=== PATIENT | female | born 1965 | race Caucasian/White ===

== ENCOUNTER 2024-01-23 08:23 | Emergency (ER) | payer BC, SELFPAY ==
[2024-01-23 08:35] VITALS: BP 130/68
[2024-01-23 09:28] VITALS: BMI 26.2
[2024-01-23 09:29] VITALS: BP 129/80
--- NOTE | 2024-01-23 09:44 | ED.GENMED ---
History of Present Illness
General
Chief Complaint: Abdominal Pain
Source: patient
Exam Limitations: none
Time Seen by Provider: 01/23/24 09:07
Nursing documentation reviewed up to this point in time: agreed with
History of Present Illness
History of Present Illness:
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 Denies significant
urinary symptoms change in bowel movements nausea vomiting fevers.
Past History
Past History
ED Past Medical History: Arrthythmia and GERD
ED Past Surgical History: None
Social History
Tobacco: Non-smoker
Alcohol: Occasional
Personal:
Living: with family
Review of Systems
Review of Systems
Allergies reviewed?: Yes
All Other Systems: ROS reviewed and negative except as documented in HPI and ROS
Phy Exam
Physical Exam
Physical Exam:
GENERAL: Alert , in no apparent distress
EYE: pupils equal and reactive
NECK: Supple, no significant adenopathy.
ENT: o/p clr, mmm.
CARDIAC: Regular rate and rhythm .
LUNGS: Clear breath sounds bilaterally, no acute respiratory distress, no wheezes/rales/rhonchi
ABDOMEN: Soft, without focal tenderness, no r/g, no cvat
NEUROLOGICAL: Alert and oriented, no focal neuro deficits
SKIN: Warm and dry, skin intact.
MUSCULOSKELETAL: No edema, well perfused.
PSYCH: Normal and appropriate interaction.
Course
Orders/Labs/Results
Orders:
Orders
01/23/24 09:33
Complete Blood Count/With Diff Urgent
Comprehensive Metabolic Panel Urgent
Lipase Urgent
Urinalysis Reflex To Culture Urgent
Date Specimen was Collected: 01/23/24
Time Specimen was Collected: 09:27
01/23/24 09:33
01/23/24 09:33
Vital Signs
Initial and Last Documented VS:
Initial Vital Signs
Temp Pulse Resp BP Pulse Ox
99.1 F 68 18 130/68 100
01/23/24 08:35 01/23/24 08:35 01/23/24 08:35 01/23/24 08:35 01/23/24 08:35
Last Documented Vital Signs
Temp Pulse Resp BP Pulse Ox
99.1 F 68 18 127/68 100
01/23/24 08:35 01/23/24 08:35 01/23/24 08:35 01/23/24 10:00 01/23/24 08:35
MDM/Problems Addressed
MDM/Problems Addressed:
58-year-old female presenting to the emergency department today with concerns of lower abdominal pain made worse with movement and hip flexion over the past few days no specific inciting event. No additional GI or urinary symptoms. No vaginal
bleeding or discharge. No reproducible pain on exam other than when lifting her right leg. Seems to be most likely muscular. Labs unremarkable no progression of symptoms while here. With symptoms of 4 days no white count making surgical process
or appendicitis very unlikely. Also no reproducible pain to palpation. Stable for discharge return precautions given.
*Critical Care Note
Total Time (30-74mins, 75-104mins- exclusive of procedures): Not Applicable
ED Attending Note
-
Portions of this chart may have been created with voice recognition software.� Occasional wrong word or��sound alike� substitutions may have occurred due to the inherent limitations of voice recognition software.
Discharge Plan
Departure
Patient Disposition: Home (Routine Discharge)
Date of Disposition: 01/23/24
Time of Disposition: 10:25
Patient with high blood pressure during this ER visit?: No
Condition: Good
Covid-19: Not Applicable
Discharge Problem:
Lower abdominal pain
Instructions: Abdominal Pain
Prescriptions:
No Action
rivaroxaban [Xarelto] 20 MG tablet
20 mg PO QPM Qty: 30 0RF
Referrals:
Marcia Gaspar CRNP [Family Provider] -
Activity Restrictions/Additional Instructions:
You came to the emergency department today with concerns of lower abdominal pain. Here you to reassuring assessment with normal labs and urinalysis. Please immediately return to the emergency department for any worsening or progressive symptoms.
Interventions
Interventions:
*Risk Screen - Suicide Last Done: 01/23/24 09:28
*General Assessment Last Done: 01/23/24 09:28
*Neglect/Abuse Screening Last Done: 01/23/24 09:28
ED- Fall Risk Assessment Last Done: 01/23/24 09:41
*ED COVID-19 Vaccine History Last Done: 01/23/24 09:28
GZ-Kiyolc-Thrutjjsay Assessment Last Done: 01/23/24 09:28
Discharge Date and Time
Print Language: INDONESIAN
[2024-01-23 09:48] LABS: Urine Albumin Negative (Neg - Trace); Urine Bilirubin Negative (Negative); Urine Character Clear (Clear); Urine Color Yellow; Urine Glucose Negative (Negative); Urine Ketone Negative (Negative); Urine Leukocyte Negative (Negative); Urine Nitrite Negative (Negative); Urine Occult Blood Negative (Negative); Urine Specific Gravity 1.005 (<1.030); Urine Urobilinogen Negative (Neg - 1+)
[2024-01-23 09:52] LABS: % Basophils 0.6 % (0-2); % Eosinophils 0.6 % (0-6); % Immature Granulocytes 0.2 % (0-0.5); % Lymphocytes 23.8 % (20.5-51.1); % Monocytes 5.1 % (1.7-9.3); % Neutrophils 69.7 % (42.2-75.2); Absolute Basophils 0.1 10^3/uL (0-0.2); Absolute Eosinophils 0.1 10^3/uL (0-0.7); Absolute Lymphocytes 2.1 10^3/uL (1.2-3.4); Absolute Monocytes 0.4 10^3/uL (0.1-0.6); Hematocrit 40.7 % (37.0-47.0); Hemoglobin 13.7 g/dL (12.0-16.0); Mean Corp Hgb Conc. 33.7 g/dL (33.0-37.0); Mean Corpuscular Hgb 30.8 pg (27.0-31.0); Mean Corpuscular Volume 91.5 fL (81.0-99.0); Mean Platelet Volume 9.8 fL (7.4-10.4); Nucleated Red Blood Cells % 0 %; Platelet Count 298 10^3/uL (130-400); Red Blood Cell Count 4.45 10^6/uL (4.20-5.40); Red Cell Dist. Width 12.5 % (11.5-14.5); White Blood Cell Count 8.7 10^3/uL (4.8-10.8)
[2024-01-23 10:00] VITALS: BP 127/68
[2024-01-23 10:08] LABS: ALT (SGPT) 22 U/L (0-35); AST (SGOT) 24 U/L (14-36); Albumin 4.6 g/dl (3.5-5.0); Alkaline Phosphatase 78 U/L (38-126); Blood Urea Nitrogen 15 mg/dl (7-17); Calcium 9.7 mg/dl (8.4-10.2); Carbon Dioxide 30 mmol/L (22-30); Chloride 104 mmol/L (98-107); Estimated Creatinine Clearance 54 ml/min; Glucose 91 mg/dl (70-99); Lipase 92 U/L (23-300); Potassium 4.5 mmol/L (3.5-5.1); Sodium 141 mmol/L (135-145); Total Bilirubin 0.6 mg/dl (0.2-1.3); Total Protein 7.5 g/dl (6.3-8.2); eGFR > 60.00
== END 2024-01-23 10:42 | disposition home or self-care (01) ==
LOC: EMR 08:23
PROVIDERS: Physician Assistant; EMERGENCY PHYSICIAN Emergency Medicine; FAMILY PHYSICIAN Registered Nurse
DX: R10.30 Lower abdominal pain, unspecified (principal); K21.9 Gastro-esophageal reflux disease without esophagitis; Z79.01 Long term (current) use of anticoagulants; Z86.718 Personal history of other venous thrombosis and embolism
CPT/HCPCS: 99283; 80053; 81003; 83690; 85025

== ENCOUNTER 2024-01-26 11:39 | Emergency (ER) | payer BC, SELFPAY ==
[2024-01-26 11:45] VITALS: BP 129/75
[2024-01-26 12:32] LABS: % Basophils 0.6 % (0-2); % Eosinophils 0.6 % (0-6); % Immature Granulocytes 0.4 % (0-0.5); % Lymphocytes 29.4 % (20.5-51.1); % Monocytes 4.3 % (1.7-9.3); % Neutrophils 64.7 % (42.2-75.2); Absolute Basophils 0.1 10^3/uL (0-0.2); Absolute Eosinophils 0.1 10^3/uL (0-0.7); Absolute Monocytes 0.4 10^3/uL (0.1-0.6); Absolute Neutrophils 6.6 10^3/uL (1.4-6.5); Hemoglobin 13.5 g/dL (12.0-16.0); Mean Corp Hgb Conc. 32.1 g/dL (33.0-37.0); Mean Corpuscular Hgb 30.2 pg (27.0-31.0); Mean Platelet Volume 10.4 fL (7.4-10.4); Nucleated Red Blood Cells % 0 %; Platelet Count 305 10^3/uL (130-400); Red Blood Cell Count 4.47 10^6/uL (4.20-5.40); Red Cell Dist. Width 12.5 % (11.5-14.5); White Blood Cell Count 10.2 10^3/uL (4.8-10.8)
[2024-01-26 12:34] LABS: ALT (SGPT) 20 U/L (0-35); AST (SGOT) 22 U/L (14-36); Albumin 4.7 g/dl (3.5-5.0); Alkaline Phosphatase 79 U/L (38-126); Blood Urea Nitrogen 19 mg/dl (7-17); Calcium 9.8 mg/dl (8.4-10.2); Carbon Dioxide 29 mmol/L (22-30); Chloride 103 mmol/L (98-107); Glucose 117 mg/dl (70-99); Lipase 94 U/L (23-300); Sodium 141 mmol/L (135-145); Total Bilirubin 0.6 mg/dl (0.2-1.3); Total Protein 7.7 g/dl (6.3-8.2); eGFR > 60.00
[2024-01-26 12:50] LABS: Urine Albumin Negative (Neg - Trace); Urine Bilirubin Negative (Negative); Urine Character Clear (Clear); Urine Color Yellow; Urine Glucose Negative (Negative); Urine Ketone Negative (Negative); Urine Leukocyte Negative (Negative); Urine Nitrite Negative (Negative); Urine Occult Blood Negative (Negative); Urine Specific Gravity 1.005 (<1.030); Urine Urobilinogen Negative (Neg - 1+)
--- NOTE | 2024-01-26 13:22 | ED.GENMED ---
History of Present Illness
General
Chief Complaint: Abdominal Pain
Source: patient
Time Seen by Provider: 01/26/24 13:06
History of Present Illness
History of Present Illness:
58yoF with a history of afib not currently on medications presenting for evaluation of abdominal pain. She reports RLQ pain that initially started last week. Pain worsened 3 days ago prompting her to go to the ED for evaluation. Labs and UA were
done at that time which were unremarkable and she was diagnosed with a muscular strain. Since discharge, she has been using Aleve without improvement. Her symptoms are persistent which prompted her to come back to the ED. Pain is only present with
movement. She denies any fevers, chills, vomiting, diarrhea, dysuria, chest pain, shortness of breath. She is mildly constipated and had a small BM this morning. Only previous abdominal surgery is a partial hysterectomy.
Past History
Past History
ED Past Medical History: Arrthythmia and GERD
ED Past Surgical History: None
Social History
Tobacco: Non-smoker
Alcohol: Occasional
Personal:
Living: with family
Phy Exam
Physical Exam
Physical Exam:
Abdomen is soft, non-distended. Mild tenderness in suprapubic/RLQ regions. No rebound, rigidity, or guarding.
General Physical Exam
General Presentation: well appearing and no apparent distress
General Skin: warm and dry
Cardiovascular Exam
Cardiovascular Exam: regular rate/rhythm
Pulmonary Exam
Pulmonary Exam: lungs clear, no respiratory distress, no rales, no crackles, no rhonchi and no wheezing
Gastrointestinal Exam
Gastrointestinal Exam: soft and non distended
Course
Orders/Labs/Results
Orders:
Orders
01/26/24 11:50
Complete Blood Count/With Diff Urgent
Comprehensive Metabolic Panel Urgent
Lipase Urgent
Urinalysis Reflex To Culture Urgent
Date Specimen was Collected: 01/26/24
Time Specimen was Collected: 11:48
01/26/24 13:22
CT Abd/pelvis W Iv Cont Urgent
Comment:
Reason For Exam: RLQ pain
Abnormal Lab Results
01/26/24
11:50
MCHC 32.1 L g/dL
(33.0-37.0)
Absolute Neuts (auto) 6.6 H 10^3/uL
(1.4-6.5)
BUN 19 H mg/dl
(7-17)
Glucose 117 H mg/dl
(70-99)
01/26/24 11:50
01/26/24 11:50
Vital Signs
Initial and Last Documented VS:
Initial Vital Signs
Temp Pulse Resp BP Pulse Ox
98.5 F 75 18 129/75 97
01/26/24 11:45 01/26/24 11:45 01/26/24 11:45 01/26/24 11:45 01/26/24 11:45
Last Documented Vital Signs
Temp Pulse Resp BP Pulse Ox
98.5 F 79 18 120/72 97
01/26/24 11:45 01/26/24 15:54 01/26/24 11:45 01/26/24 15:54 01/26/24 11:45
MDM/Problems Addressed
Differential Diagnosis Includes:
58yoF here with RLQ pain that began last week. Only present with movement/position changes. Seen in the ED last week and diagnosed with a muscular strain. Here with persistent symptoms. She is well appearing in no distress. She is afebrile and
hemodynamically stable. No signs of peritonitis on abdominal exam. Differential diagnosis includes but is not limited to: Muscular strain, appendicitis, ovarian pathology, kidney stone, nonspecific abdominal pain
Initial ED plan: Check CBC, CMP, UA, and CT abdomen. Patient declines analgesics.
*Critical Care Note
Total Time (30-74mins, 75-104mins- exclusive of procedures): Not Applicable
Update Note
Update Note:
Labs unremarkable including normal white count, renal function, LFTs. UA bland without signs of infection. CT abdomen is negative for acute findings. Specifically, there is no evidence of appendicitis. A right adrenal nodule that was seen
incidentally which patient was notified of. Patient understands need for follow-up with PCP for further imaging regarding this. Supportive care discussed. Advised follow-up with PCP and ED return precautions discussed. Patient discharged in
stable condition.
ED Attending Note
-
Portions of this chart may have been created with voice recognition software.� Occasional wrong word or��sound alike� substitutions may have occurred due to the inherent limitations of voice recognition software.
Discharge Plan
Departure
Patient Disposition: Home (Routine Discharge)
Date of Disposition: 01/26/24
Time of Disposition: 15:38
Patient with high blood pressure during this ER visit?: No
Discharge Problem:
Acute right lower quadrant pain, Adrenal nodule
Instructions: Abdominal Pain
Prescriptions:
No Action
rivaroxaban [Xarelto] 20 MG tablet
20 mg PO QPM Qty: 30 0RF
Referrals:
Marcia Gaspar CRNP [Family Provider] -
Activity Restrictions/Additional Instructions:
Apply heat to affected area. Take Tylenol and ibuprofen for pain.
Please follow-up with your family doctor. You will need a CT or MRI for the adrenal nodule seen on your CT today.
Return to the ER with any worsening symptoms.
Interventions
Interventions:
*Risk Screen - Suicide Last Done: 01/26/24 11:45
*General Assessment Last Done: 01/26/24 11:45
*Neglect/Abuse Screening Last Done: 01/26/24 11:45
ED- Fall Risk Assessment Last Done: 01/26/24 13:19
*ED COVID-19 Vaccine History Last Done: 01/26/24 13:19
*Nursing Disposition Last Done: 01/26/24 15:54
FP-Amekia-Qgauqxhoks Assessment Last Done: 01/26/24 13:19
Discharge Date and Time
Discharge Date/Time: 01/26/24 15:54
Print Language: WOLOF
[2024-01-26 15:54] VITALS: BP 120/72
== END 2024-01-26 15:54 | disposition home or self-care (01) ==
LOC: EMR 11:39
PROVIDERS: Emergency Medicine; EMERGENCY PHYSICIAN Student in an Organized Health Care Education/Training Program; FAMILY PHYSICIAN Registered Nurse
DX: R10.31 Right lower quadrant pain (principal); K59.00 Constipation, unspecified; E27.8 Other specified disorders of adrenal gland; I48.91 Unspecified atrial fibrillation; K21.9 Gastro-esophageal reflux disease without esophagitis; Z91.040 Latex allergy status
CPT/HCPCS: 99284; 74177; 80053; 81003; 83690; 85025; Q9967

== ENCOUNTER 2024-09-27 15:14 | Emergency (ER) | payer BC, SELFPAY ==
--- NOTE | 2024-09-27 16:45 | ED.GENMED ---
History of Present Illness
General
Chief Complaint: Ear Problem
Source: patient
Exam Limitations: none
Time Seen by Provider: 09/27/24 16:17
Nursing documentation reviewed up to this point in time: agreed with
History of Present Illness
History of Present Illness:
59-year-old female presenting to the emergency department today with concerns of earring stuck on ears bilaterally. Has had some irritation mainly to the left ear right ear without any specific additional symptoms. Denies additional concerns
Past History
Past History
ED Past Medical History: Arrthythmia and GERD
ED Past Surgical History: None
Social History
Tobacco: Non-smoker
Alcohol: Occasional
Personal:
Living: with family
Review of Systems
Review of Systems
Allergies reviewed?: Yes
All Other Systems: ROS reviewed and negative except as documented in HPI and ROS
Phy Exam
Physical Exam
Physical Exam:
GENERAL: Alert , in no apparent distress
EYE: pupils equal and reactive
NECK: Supple, no significant adenopathy.
ENT: Earring stuck to bilateral earlobes redness to the left earlobe right side normal o/p clr, mmm.
CARDIAC: Regular rate and rhythm .
LUNGS: Clear breath sounds bilaterally, no acute respiratory distress, no wheezes/rales/rhonchi
ABDOMEN: Soft, without focal tenderness, no r/g, no cvat
NEUROLOGICAL: Alert and oriented, no focal neuro deficits
SKIN: Warm and dry, skin intact.
MUSCULOSKELETAL: No edema, well perfused.
PSYCH: Normal and appropriate interaction.
Course
Vital Signs
Initial and Last Documented VS:
Initial Vital Signs
Temp Pulse Resp Pulse Ox
98.2 F 98 16 100
09/27/24 15:21 09/27/24 15:21 09/27/24 15:21 09/27/24 15:21
Last Documented Vital Signs
Temp Pulse Resp Pulse Ox
98.2 F 98 16 100
09/27/24 15:21 09/27/24 15:21 09/27/24 15:21 09/27/24 15:21
Procedures
Foreign Body Removal-Ear
Bilateral Lobe:
Tenderness: mild
Any local drainage: none
External ear canal cleaned with removal of cerumen using: other (Wire cutters)
Exam of canal after removal: no inflammation
MDM/Problems Addressed
MDM/Problems Addressed:
59-year-old female presenting for earrings that were stuck to the ears bilaterally. This was stopped due to a piece of plastic being wedged onto a screw like backing of the earring. These were cut off with wire cutters without incident. Stable
for outpatient management return precautions given.
*Critical Care Note
Total Time (30-74mins, 75-104mins- exclusive of procedures): Not Applicable
ED Attending Note
-
Portions of this chart may have been created with voice recognition software.� Occasional wrong word or��sound alike� substitutions may have occurred due to the inherent limitations of voice recognition software.
Discharge Plan
Departure
Patient Disposition: Home (Routine Discharge)
Date of Disposition: 09/27/24
Time of Disposition: 16:48
Patient with high blood pressure during this ER visit?: No
Condition: Good
Covid-19: Not Applicable
Discharge Problem:
Embedded earring
Instructions: Foreign Body in Ear (DC)
Prescriptions:
No Action
rivaroxaban [Xarelto] 20 MG tablet
20 mg PO QPM Qty: 30 0RF
Activity Restrictions/Additional Instructions:
You came to the emergency department today with concerns of your earring being stuck. This was cut off with wire cutters. Please follow-up closely as an outpatient for any progressive symptoms. Return for any worsening, new or concerning symptoms.
Interventions
Interventions:
*Risk Screen - Suicide Last Done: 09/27/24 15:23
*General Assessment Last Done: 09/27/24 15:21
*Neglect/Abuse Screening Last Done: 09/27/24 15:21
*ED COVID-19 Vaccine History Last Done: 09/27/24 15:21
Discharge Date and Time
Print Language: QATARI
== END 2024-09-27 17:23 | disposition home or self-care (01) ==
LOC: EMR 15:14
PROVIDERS: EMERGENCY PHYSICIAN Emergency Medicine; FAMILY PHYSICIAN Family Medicine
DX: T16.9XXA Foreign body in ear, unspecified ear, initial encounter (principal); W44.E4XA Non-magnetic metal jewelry entering into or through a natural orifice, initial encounter; K21.9 Gastro-esophageal reflux disease without esophagitis
CPT/HCPCS: 99282